=== PATIENT | female | born 1950 | race Caucasian/White ===

== ENCOUNTER 2017-07-18 16:47 | Emergency (ER) | payer MEDICARE, OTHER ==
--- NOTE | 2017-07-18 17:12 | PDOC ---
Rapid Medical Evaluation Time Seen by Provider: 07/18/17 17:02 Medical Evaluation: 07/18/17 17:03 I have performed a brief in-person evaluation of the patient. The patient presents with a chief complaint of : non productive coughing that causes discomfort in chest, and congestion. Denies fever or chills Pertinent physical exam findings. unlabored breathing clear lungs bilaterally I have ordered the following chest xray This patient will proceed to the ED for further evaluation.
[2017-07-18 17:13] VITALS: BP 141/63; PULSE 88; TEMP 98.6; BMI 21.2
--- NOTE | 2017-07-18 17:55 | PDOC ---
History of Present Illness - General Chief Complaint: Cold Symptoms Stated Complaint: COLD SYMPTOMS Time Seen by Provider: 07/18/17 17:02 - History of Present Illness Initial Comments: 66-year-old healthy active female presents for evaluation of cough 4 days. She denies fever chills or night sweats. No headache. She has taken nothing for her cough. 07/18/17 17:50 Past History - Past Medical History Allergies/Adverse Reactions: Allergies Allergy/AdvReac Type Severity Reaction Status Date / Time No Known Allergies Allergy Verified 07/18/17 17:06 Home Medications: Ambulatory Orders Azithromycin [Zithromax -] 250 mg PO UTDICT #6 tab 07/18/17 Guaifenesin [Robitussin] 5 ml PO HS #30 ml 07/18/17 COPD: No HTN: Yes Hypercholesterolemia: Yes Psychiatric Problems: Yes (depression) - Suicide/Smoking/Psychosocial Hx Smoking History: Never smoked Have you smoked in the past 12 months: No Information on smoking cessation initiated: No Hx Alcohol Use: No (socially) Drug/Substance Use Hx: No Substance Use Type: None Review of Systems - Review of Systems Comments:: GENERAL/CONSTITUTIONAL: No fever or chills. No weakness. No weight change. HEAD, EYES, EARS, NOSE AND THROAT: No change in vision. No ear pain or discharge. No sore throat. CARDIOVASCULAR: No chest pain or shortness of breath. RESPIRATORY: + cough, no wheezing, or hemoptysis. GASTROINTESTINAL: No nausea, vomiting, diarrhea or constipation. No rectal bleeding. GENITOURINARY: No dysuria, frequency, or change in urination. MUSCULOSKELETAL: No joint or muscle swelling or pain. No neck or back pain. SKIN AND BREASTS: No rash or easy bruising. NEUROLOGIC: No headache, vertigo, loss of consciousness, or loss of sensation. PSYCHIATRIC: No depression or anxiety. ENDOCRINE: No increased thirst. No abnormal weight change. HEMATOLOGIC/LYMPHATIC: No anemia, easy bleeding, or history of blood clots. ALLERGIC/IMMUNOLOGIC: No hives or skin allergy. No latex allergy. 07/18/17 17:51 *Physical Exam - Vital Signs Last Vital Signs Temp Pulse Resp BP Pulse Ox 98.6 F 88 20 141/63 99 07/18/17 17:07 07/18/17 17:07 07/18/17 17:07 07/18/17 17:07 07/18/17 17:07 - Physical Exam Comments: GENERAL: The patient is awake, alert, and fully oriented, in no acute distress. HEAD: Normal with no signs of trauma. EYES: Pupils equal, round and reactive to light, extraocular movements intact, sclera anicteric, conjunctiva clear. ENT: Ears normal, nares patent, oropharynx clear without exudates. Moist mucous membranes. NECK: Normal range of motion, supple without lymphadenopathy, JVD, or masses. LUNGS: Breath sounds equal, clear to auscultation bilaterally. No wheezes, and no crackles. HEART: Regular rate and rhythm, normal S1 and S2 without murmur, rub or gallop. ABDOMEN: Soft, nontender, normoactive bowel sounds. No guarding, no rebound. No masses. EXTREMITIES: Normal range of motion, no edema. No clubbing or cyanosis. No cords, erythema, or tenderness. NEUROLOGICAL: Cranial nerves II through XII grossly intact. Normal speech, normal gait. PSYCH: Normal mood, normal affect. SKIN: Warm, Dry, normal turgor, no rashes or lesions noted. 07/18/17 17:53 Medical Decision Making - Medical Decision Making Given the symptoms and her age I will treat her as a bronchitis. I'll have her follow-up with her by [facility] physician 07/18/17 17:54 *DC/Admit/Observation/Transfer Diagnosis at time of Disposition: Bronchitis - Discharge Dispostion Disposition: HOME Condition at time of disposition: Stable Decision to Admit order: No - Prescriptions Prescriptions: Azithromycin [Zithromax -] 250 mg PO UTDICT #6 tab Guaifenesin [Robitussin] 5 ml PO HS #30 ml - Referrals Referrals: Vaibhav Aguilar [Primary Care Provider] - - Patient Instructions Printed Discharge Instructions: DI for Acute Bronchitis Additional Instructions: I have given you a prescription for an antibiotic as well as cough syrup to help sleep at night. Follow-up with your primary care physician in one to 2 days. Return to the emergency room should her symptoms worsen or go unresolved prior to follow-up with her primary care doctor. - Post Discharge Activity
== END 2017-07-18 18:12 | disposition home or self-care (01) ==
LOC: JERFT 16:47 → JER 16:47 → JERFT 18:12
DX: J40 Bronchitis, not specified as acute or chronic (principal); I10 Essential (primary) hypertension; F32.9 Major depressive disorder, single episode, unspecified; E78.00 Pure hypercholesterolemia, unspecified
CPT/HCPCS: 99281-25

== ENCOUNTER 2017-07-30 14:42 | Observation (INO) | payer MEDICARE, OTHER ==
[2017-07-30 14:50] VITALS: BMI 20.9
--- NOTE | 2017-07-30 15:11 | PDOC ---
History of Present Illness - General Chief Complaint: Syncope/Near Syncope Stated Complaint: Syncope/Near Syncope Time Seen by Provider: 07/30/17 15:07 - History of Present Illness Initial Comments: 07/30/17 18:41 The patient is a 66 year old female with a history of HTN, HLD who presents for evaluation following a syncopal episode. She is accompanied by family who assist in providing the history. They note that the patient experienced a syncopal episode earlier today. She states that she was standing when she experienced a sensation of lightheadedness and syncopized. She was caught by one of her relatives and returned baseline immediately after the episode. No rhythmic movements, incontinence, or tongue biting were noted. The patient notes ongoing chest pain over the past two weeks which she attributes to a bronchitis. The patient otherwise denies fevers, chills, SOB, nausea, vomiting , abdominal pain, or changes with urination or bowel movements. Past History - Past Medical History Allergies/Adverse Reactions: Allergies Allergy/AdvReac Type Severity Reaction Status Date / Time No Known Allergies Allergy Verified 07/30/17 15:59 Home Medications: Ambulatory Orders Amlodipine Besylate [Norvasc -] 5 mg PO DAILY 07/30/17 Atorvastatin Calcium 20 mg PO DAILY 07/30/17 Bisoprolol Fumarate [Zebeta (Nf) -] 2.5 mg PO DAILY 07/30/17 Calcium Carbonate/Vitamin D3 [Calcium 500 + Vit D3 400 Tab] 1 each PO DAILY 01/06 Donepezil HCl [Aricept -] 5 mg PO AM 07/30/17 Guaifenesin [Robafen] 100 mg PO HS 07/30/17 Losartan/Hydrochlorothiazide [Losartan-Hctz 100-25 mg Tab] 1 each PO DAILY 07/30 Omeprazole/Sodium Bicarbonate [Omeppi 40 mg-1,100 mg Capsule] 1 each PO ASDIR Sertraline HCl [Zoloft -] 50 mg PO AM 07/30/17 COPD: No HTN: Yes Hypercholesterolemia: Yes Psychiatric Problems: Yes (depression) - Suicide/Smoking/Psychosocial Hx Smoking History: Never smoked Have you smoked in the past 12 months: No Information on smoking cessation initiated: No Hx Alcohol Use: No Drug/Substance Use Hx: No Substance Use Type: None Review of Systems - Review of Systems Comments:: 07/30/17 18:44 Constitutional: No fevers, chills, fatigue, malaise HEENT: No Rhinorrhea, nasal congestion, visual changes Cardiovascular: Syncope, Lightheadedness. Chest pain. No palpitations, Respiratory: No Cough, SOB, Hemoptysis, Gastrointestinal: No Abdominal pain, Nausea, Vomiting, Constipation, Diarrhea, Melena Genitourinary: No Dysuria, Frequency, Urgency, Hesitancy, Hematuria, Flank pain Musculoskeletal: No Myalgia, arthralgia Skin: No rashes, itching, bruising, pallor Neurologic: No Headache, Dizziness, Numbness, Weakness, or Tingling Psychiatric: No Hallucinations. No SI or HI *Physical Exam - Vital Signs Last Vital Signs Temp Pulse Resp BP Pulse Ox 98.6 F 61 20 102/63 100 07/30/17 14:47 07/30/17 14:47 07/30/17 14:47 07/30/17 14:47 07/30/17 14:47 - Physical Exam Comments: 07/30/17 18:44 General Appearance: Nourished. No Apparent Distress HEENT: EOMI, SHABNAM. No Pharyngeal Erythema, Tonsillar Exudate, Tonsillar Erythema Neck: No Cervical Lymphadenopathy Respiratory/Chest: Lungs Clear, Normal Breath Sounds. No Crackles, Rales, Rhonchi, Wheezing Cardiovascular: Regular Rhythm, Regular Rate. No Murmur, Gallops, Rubs Gastrointestinal/Abdominal: Normal Bowel Sounds, Soft. No Guarding, Rebound, Tenderness Musculoskeletal: No CVA Tenderness Extremity: Normal Capillary Refill Integumentary: Normal Color, Dry, Warm Neurologic: Fully Oriented, Alert, Normal Mood/Affect, Normal Response, ED Treatment Course - LABORATORY CBC & Chemistry Diagram: 07/30/17 15:15 07/30/17 15:15 Medical Decision Making - Medical Decision Making 07/30/17 18:45 The patient is a 66 year old female with a history of HTN, HLD who presents for evaluation following a syncopal episode. Differential includes but is not limited to: Arrhythmia, ACS, Dehydration, Vaso-vagal, Infectious, Metabolic derangement. Given the patient's history and physical exam, we will obtain a cbc, cmp, troponin, ekg, chest plain film to evaluate further for possible etiologies. We will continue to closely monitor and reassess while here in the ED. 07/30/17 18:46 CBC, cmp, troponin are unremarkable. There are concerning findings on the patient's ekg and a prior is unavailable. Given the patient's syncopal episode , we believe she requires admission for further work up at this time. We discussed the case with Dr. Bolivar with cardiology who has been made aware of the case and does not believe her syncope is related to her EKG findings. *DC/Admit/Observation/Transfer Diagnosis at time of Disposition: Syncope Qualifiers: Syncope type: unspecified Qualified Code(s): R55 - Syncope and collapse - Discharge Dispostion Condition at time of disposition: Stable Decision to Admit order: Yes - Referrals Referrals: Vaibhav Aguilar [Primary Care Provider] - - Patient Instructions - Post Discharge Activity
[2017-07-30 15:57] LABS: INR 1.01 (0.82-1.09); PROTHROMBIN TIME (PATIENT) 11.4 SEC (9.7-13.0)
[2017-07-30 16:00] LABS: ACTIVATED PTT 25.3 SECONDS (26.9-34.4)
[2017-07-30 16:09] LABS: BASO % 0.3 % (0-2.0); EOS % 0.6 % (0-4.5); HEMATOCRIT 38.3 % (32.4-45.2); HEMOGLOBIN 12.8 GM/dL (10.7-15.3); LYMPH % 17.7 % (8-40); MCH 30.3 pg (25.7-33.7); MCHC 33.3 g/dl (32.0-36.0); MEAN CELL VOLUME 90.9 fl (80-96); MEAN PLT VOLUME 10.9 fl (7.5-11.1); MONO % 5.4 % (3.8-10.2); PLATELET COUNT 301 K/MM3 (134-434); RBC 4.21 M/mm3 (3.60-5.2); RDW 14.5 % (11.6-15.6); WHITE BLOOD COUNT 10.7 K/mm3 (4.0-10.0)
[2017-07-30 16:18] LABS: ALBUMIN 3.5 g/dl (3.4-5.0); ANION GAP 5 (8-16); BLOOD UREA NITROGEN 19 mg/dL (7-18); CALCIUM 8.8 mg/dL (8.5-10.1); CHLORIDE 104 mmol/L (98-107); CO2 30 mmol/L (21-32); CREATININE 0.9 mg/dL (0.55-1.02); GLUCOSE,RANDOM 138 mg/dL (74-106); POTASSIUM 3.5 mmol/L (3.5-5.1); SGOT/AST 21 U/L (15-37); SODIUM 139 mmol/L (136-145)
--- NOTE | 2017-07-30 16:21 | EKG ---
Test Reason : Blood Pressure : / mmHG Vent. Rate : 058 BPM Atrial Rate : 058 BPM P-R Int : 178 ms QRS Dur : 088 ms QT Int : 490 ms P-R-T Axes : 061 030 174 degrees QTc Int : 481 ms SINUS BRADYCARDIA LEFT VENTRICULAR HYPERTROPHY WITH REPOLARIZATION ABNORMALITY ABNORMAL ECG NO PREVIOUS ECGS AVAILABLE Confirmed by ZACARIAS LEUNG MD ([id number]) on 07/30/2017 4:21:02 PM Referred By: Confirmed By:ZACARIAS LEUNG MD
[2017-07-30 16:30] LABS: URINE APPEARANCE CLEAR; URINE BILIRUBIN NEGATIVE (<2.0 mg/dL); URINE BLOOD NEGATIVE (NEGATIVE); URINE COLOR LTYELLOW; URINE GLUCOSE (UA) NEGATIVE (NEGATIVE); URINE KETONE NEGATIVE (NEGATIVE); URINE LEUK ESTERASE NEGATIVE (NEGATIVE); URINE NITRITE NEGATIVE (NEGATIVE); URINE PROTEIN NEGATIVE (NEGATIVE); URINE UROBILINOGEN NEGATIVE mg/dL (0.2-1.0)
[2017-07-30 16:57] LABS: ALK PHOS 78 U/L (45-117); BILIRUBIN,TOTAL 0.3 mg/dL (0.2-1.0); TOT PROT 7.9 g/dl (6.4-8.2)
--- NOTE | 2017-07-30 17:03 | PDOC ---
Attending Attestation - Resident Resident Name: Isacc Ordoñez - ED Attending Attestation I have performed the following: I have examined & evaluated the patient, The case was reviewed & discussed with the resident, I agree w/resident's findings & plan, Exceptions are as noted - HPI HPI: 07/30/17 17:30 The patient is a 66-year-old female, with a past medical history of HTN and hyperlipidemia, who presents to the ED s/p syncopal episode today. The patient was standing up and suddenly became lightheaded. The patient passed out but a family member caught her and lowered her to the ground. No head strike. She was down for approximately 1 minute. No urine or stool incontinece. No shaking movements. As per family member, the patient seemed confused after the incident for a minute or two. Patient had a similar episode 1 year ago. On exam, the patient is complaining of generalized global headache and lightheadedness. The patient recently visited the ED 1 week ago for chest pain and was diagnosed with bronchitis. The patient was prescribed a course of azithromycin and robitussin. The patient denies any fever, chills, nausea, vomiting, diarrhea, or abdominal pain. The patient denies any chest pain or shortness of breath. The patient denies any incontinence, focal weakness or numbness Allergies: TOMAS PCP: Dr. Aguilar - Physicial Exam PE: 07/30/17 17:30 GENERAL: Awake, alert, and fully oriented, in no acute distress HEAD: No signs of trauma EYES: PERRLA, EOMI, sclera anicteric, conjunctiva clear ENT: Auricles normal inspection, hearing grossly normal, nares patent, oropharynx clear without exudates. Moist mucosa NECK: Normal ROM, supple, no lymphadenopathy, JVD, or masses LUNGS: Breath sounds equal, clear to auscultation bilaterally. No wheezes, and no crackles HEART: Regular rate and rhythm, normal S1 and S2, no murmurs, rubs or gallops ABDOMEN: Soft, nontender, normoactive bowel sounds. No guarding, no rebound. No masses EXTREMITIES: Normal range of motion, no edema. No clubbing or cyanosis. No cords, erythema, or tenderness NEUROLOGICAL: Normal speech, cranial nerves intact, negative pronator drift, 5/ 5 strength in all 4 extremities, normal sensation to light touch in all 4 extremities, normal cerebellar exam, normal gait, normal reflexes and tone SKIN: Warm, Dry, normal turgor, no rashes or lesions noted. - Medical Decision Making 07/30/17 17:31 66-year-old female history of hypertension, hyperlipidemia presents emergency Department with a syncopal episode. Vitals are unremarkable. Exam is unremarkable. EKG is very concerning given patient has diffuse T-wave inversions and ST depressions as well as a [address] elevation in aVR. Patient has been asymptomatic while in the ER, denies chest pain. Patient notes that she is often told she has a very abnormal EKG but does not know why. She states she saw a epidemiology investigator more than one year ago at [facility]. She has never had a cardiac cath. Given syncope and abnormal EKG, Dr. Manzo has been consulted, awaiting a call back. We will admit the pt to tele for monitoring overnight. 07/30/17 18:[address] Malloy (cards), states that EKG is not concerning for ALEXIS w reciprocal depressions, more so strain pattern. He does not believe this is related to her syncopal episode. Pt to be admitted for tele monitoring. Heart Score/ECG Review #1 07/30/17 17:37 Twelve-lead EKG was performed and reviewed by me. Sinus bradycardia, rate 58. Normal axis. Diffuse ST depressions in leads I, II, avL, V2-V6 with TWI. Pt also has 1mm ALEXIS in avr.
[2017-07-30 17:12] LABS: SGPT/ALT 25 U/L (12-78)
--- NOTE | 2017-07-30 20:47 | HP ---
Admitting History and Physical - Primary Care Physician PCP: Demetrius Álvarez - Admission Chief Complaint: syncope History of Present Illness: 66 year old female with a history of HTN, HLD who presents for evaluation following a syncopal episode. She is accompanied by family who assist in providing the history. They note that the patient experienced a syncopal episode earlier today. She states that she was standing when she experienced a sensation of lightheadedness and syncopized. She was caught by one of her relatives and returned baseline immediately after the episode. - - Past Medical History Cardiovascular: Yes: HTN, Hyperlipdemia - Smoking History Smoking history: Never smoked Have you smoked in the past 12 months: No - Alcohol/Substance Use Hx Alcohol Use: No Home Medications - Allergies Allergies/Adverse Reactions: Allergies Allergy/AdvReac Type Severity Reaction Status Date / Time No Known Allergies Allergy Verified 07/30/17 15:59 - Home Medications Home Medications: Ambulatory Orders Amlodipine Besylate [Norvasc -] 5 mg PO DAILY 07/30/17 Atorvastatin Calcium 20 mg PO DAILY 07/30/17 Bisoprolol Fumarate [Zebeta (Nf) -] 2.5 mg PO DAILY 07/30/17 Calcium Carbonate/Vitamin D3 [Calcium 500 + Vit D3 400 Tab] 1 each PO DAILY 01/06 Donepezil HCl [Aricept -] 5 mg PO AM 07/30/17 Guaifenesin [Robafen] 100 mg PO HS 07/30/17 Losartan/Hydrochlorothiazide [Losartan-Hctz 100-25 mg Tab] 1 each PO DAILY 07/30 Omeprazole/Sodium Bicarbonate [Omeppi 40 mg-1,100 mg Capsule] 1 each PO ASDIR Sertraline HCl [Zoloft -] 50 mg PO AM 07/30/17 Physical Examination Vital Signs: Vital Signs Temperature 98.6 F 07/30/17 14:47 Pulse Rate 60 07/30/17 19:29 Respiratory Rate 17 07/30/17 19:29 Blood Pressure 124/68 07/30/17 19:29 O2 Sat by Pulse Oximetry (%) 98 07/30/17 19:29 Constitutional: Yes: No Distress HENT: Yes: Atraumatic Neck: Yes: Supple Cardiovascular: Yes: Regular Rate and Rhythm Respiratory: Yes: CTA Bilaterally Gastrointestinal: Yes: Normal Bowel Sounds Extremities: Yes: WNL Neurological: Yes: Alert, Oriented Labs: CBC, BMP 07/30/17 15:15 07/30/17 15:15 Problem List - Problems (1) Syncope Assessment/Plan: tele monitoring fu cardiac profile cardiology consult Code(s): R55 - SYNCOPE AND COLLAPSE Qualifiers: Syncope type: unspecified Qualified Code(s): R55 - Syncope and collapse Assessment/Plan Laboratory Tests 07/30/17 07/30/17 07/30/17 15:15 15:15 15:15 WBC 10.7 H RBC 4.21 Hgb 12.8 Hct 38.3 MCV 90.9 MCH 30.3 MCHC 33.3 RDW 14.5 Plt Count 301 MPV 10.9 Absolute Neuts (auto) 8.2 Neutrophils % 76.0 Lymphocytes % 17.7 Monocytes % 5.4 Eosinophils % 0.6 Basophils % 0.3 Nucleated RBC % 0 PT with INR 11.40 INR 1.01 PTT (Actin FS) 25.3 L Sodium 139 Potassium 3.5 Chloride 104 Carbon Dioxide 30 Anion Gap 5 L BUN 19 H Creatinine 0.9 Creat Clearance w eGFR > 60 Random Glucose 138 H Calcium 8.8 Magnesium 2.0 Total Bilirubin 0.3 AST 21 ALT 25 Alkaline Phosphatase 78 Troponin I < 0.02 Total Protein 7.9 Albumin 3.5 Urine Color Urine Appearance Urine pH Ur Specific [place] Urine Protein Urine Glucose (UA) Urine Ketones Urine Blood Urine Nitrite Urine Bilirubin Urine Urobilinogen Ur Leukocyte Esterase Blood Type Antibody Screen 07/30/17 07/30/17 15:15 16:15 WBC RBC Hgb Hct MCV MCH MCHC RDW Plt Count MPV Absolute Neuts (auto) Neutrophils % Lymphocytes % Monocytes % Eosinophils % Basophils % Nucleated RBC % PT with INR INR PTT (Actin FS) Sodium Potassium Chloride Carbon Dioxide Anion Gap BUN Creatinine Creat Clearance w eGFR Random Glucose Calcium Magnesium Total Bilirubin AST ALT Alkaline Phosphatase Troponin I Total Protein Albumin Urine Color Ltyellow Urine Appearance Clear Urine pH 7.0 Ur Specific [place] 1.011 Urine Protein Negative Urine Glucose (UA) Negative Urine Ketones Negative Urine Blood Negative Urine Nitrite Negative Urine Bilirubin Negative Urine Urobilinogen Negative Ur Leukocyte Esterase Negative Blood Type O POSITIVE Antibody Screen Negative Active Medications Generic Name Dose Route Start Last Admin Trade Name Freq PRN Reason Stop Dose Admin Amlodipine Besylate 5 mg 07/31/17 10:00 Norvasc - PO DAILY [facility] Atorvastatin Calcium 20 mg 07/31/17 10:00 Lipitor - PO DAILY [facility] Donepezil HCl 5 mg 07/31/17 07:00 Aricept - PO AM [facility] Non-Formulary Medication 2.5 mg 07/31/17 10:00 Bisoprolol Fumarate PO DAILY [facility] Non-Formulary Medication 1 each 07/31/17 10:00 Losartan/Hydrochlorothiazide [Losartan-Hctz 100-25 Mg Tab] PO DAILY [facility] Sertraline HCl 50 mg 07/31/17 07:00 Zoloft - PO AM [facility]
[2017-07-30] MEDS ORDERED: ATORVASTATIN CA 20 MG TABLET (FP) PO SCH (22:00)
[2017-07-31] MEDS ORDERED: SERTRALINE HCL 50 MG TABLET (FP) PO SCH (07:00)
[2017-07-31] MEDS ORDERED: DONEPEZIL HCL 5 MG TABLET (FP) PO SCH (07:00)
[2017-07-31 07:19] LABS: BASO % 0.5 % (0-2.0); HEMATOCRIT 37.8 % (32.4-45.2); HEMOGLOBIN 12.8 GM/dL (10.7-15.3); LYMPH % 36.6 % (8-40); MCH 30.7 pg (25.7-33.7); MCHC 33.8 g/dl (32.0-36.0); MEAN CELL VOLUME 90.9 fl (80-96); MEAN PLT VOLUME 10.6 fl (7.5-11.1); MONO % 5.5 % (3.8-10.2); NEUT % 56.4 % (42.8-82.8); PLATELET COUNT 264 K/MM3 (134-434); RBC 4.16 M/mm3 (3.60-5.2); RDW 14.5 % (11.6-15.6); WHITE BLOOD COUNT 8.2 K/mm3 (4.0-10.0)
[2017-07-31 07:50] LABS: CHLORIDE 104 mmol/L (98-107); POTASSIUM 3.6 mmol/L (3.5-5.1); SODIUM 142 mmol/L (136-145)
[2017-07-31 08:00] LABS: ALBUMIN 3.2 g/dl (3.4-5.0); ALK PHOS 71 U/L (45-117); ANION GAP 10 (8-16); BILIRUBIN,TOTAL 0.7 mg/dL (0.2-1.0); BLOOD UREA NITROGEN 20 mg/dL (7-18); CALCIUM 8.8 mg/dL (8.5-10.1); CO2 28 mmol/L (21-32); GLUCOSE,RANDOM 96 mg/dL (74-106); SGOT/AST 20 U/L (15-37); SGPT/ALT 22 U/L (12-78); TOT PROT 7.7 g/dl (6.4-8.2)
[2017-07-31] MEDS ORDERED: PATIENT'S OWN MEDICATION (NON-FORMULARY) (Losartan/Hydrochlorothiazide [Losartan-Hctz 100- PO SCH (10:00)
[2017-07-31] MEDS ORDERED: ATENOLOL 25 MG TABLET (FP) PO SCH (10:00)
[2017-07-31] MEDS ORDERED: LOSARTAN POTASSIUM 50 MG TABLET (FP) PO SCH (10:00)
[2017-07-31] MEDS ORDERED: LOSARTAN POTASSIUM 100 MG TABLET PO SCH (10:00)
[2017-07-31] MEDS ORDERED: HYDROCHLOROTHIAZIDE 25 MG TABLET (FP) PO SCH (10:00)
[2017-07-31] MEDS: amLODIPine BESYLATE 5 MG TABLET (FP) PO SCH ×2 (10:27→13:08)
--- NOTE | 2017-07-31 10:37 | PN ---
Progress Note (short form) - Note Progress Note: Chief Complaint: Events noted, notes reviewed, syncopal episode History of Present Illness: Seen and examined on telemetry. Full consult dictated - Current Medication List Current Medications: Current Medications Amlodipine Besylate (Norvasc -) 5 mg PO DAILY [facility] Last Admin: 07/31/17 10:27 Dose: Not Given Atenolol (Tenormin -) 25 mg PO DAILY [facility] Last Admin: 07/31/17 10:27 Dose: 25 mg Atorvastatin Calcium (Lipitor -) 20 mg PO HS [facility] Last Admin: 07/30/17 21:22 Dose: 20 mg Donepezil HCl (Aricept -) 5 mg PO AM [facility] Last Admin: 07/31/17 06:08 Dose: 5 mg Hydrochlorothiazide (Hctz -) 25 mg PO DAILY [facility] Last Admin: 07/31/17 10:27 Dose: Not Given Losartan Potassium (Cozaar -) 100 mg PO DAILY [facility] Last Admin: 07/31/17 10:26 Dose: 100 mg Sertraline HCl (Zoloft -) 50 mg PO AM [facility] Last Admin: 07/31/17 06:08 Dose: 50 mg Review of Systems: Cardiovascular: As noted above Respiratory: denies: Cough or Sputum Production Gastrointestinal: denies: Nausea, Vomiting, Diarrhea, Constipation or Abdominal Discomfort Musculoskeletal: No Symptoms Reported Endocrine: No Symptoms Reported - Objective Vital Signs: Last Vital Signs Temp Pulse Resp BP Pulse Ox 98.1 F 69 18 120/70 98 07/31/17 08:24 07/31/17 08:24 07/31/17 08:24 07/31/17 08:24 07/30/17 19:29 Intake & Output 07/28/17 07/29/17 07/30/17 07/31/17 23:59 23:59 23:59 23:59 Intake Total 10 Balance 10 Weight 104 lb Neck: Supple Negative JVD No Bruit Cardiovascular: S1 S2 regular rate and rhythm grade 1-2/6 ARTUR Respiratory: Clear Gastrointestinal: Soft Benign Normal Bowel Sounds Ext: No Edema Labs: CBC, BMP 07/31/17 06:00 07/31/17 06:00 Assessment/Plan 1. Syncopal episode clinical presentation is consistent with neuro-cardiogenic syncope, unclear vaso-depressor vs. cardio-inhibitory unlikely to be vaso-vagal 2. Abnormal EKG suggestive of CAD with no clinical angina pectoris 3. Probable diastolic LV dysfunction with class 0 NHYA classification LV failure 4. Hypertensive cardiovascular disease 5. Hypercholestrolemia 6. Organic brain syndrome 7. CKD PLAN: 1. Continue B-Blockers 2. Continue Cozaar 3. Continue Norvasc with caution pending completion of evaluation 4. Avoid diuretics pending completion of evaluation 5. ASA 6. Continue Lipitor 7. Echocardiography completed, results pending, if LV function is normal and no evidence of HOCM noted patient can be D/C home for additional outpatient testing including Tilt table testing and possible extended monitoring or possible ILR, advised to F/U in our office or with her PMD Piter Dueñas MD
--- NOTE | 2017-07-31 12:37 | CONS ---
REQUESTING PHYSICIAN: Demetrius Álvarez MD DATE OF CONSULTATION: 07/31/2017 CHIEF COMPLAINT: Syncopal episode, cardiovascular evaluation. HISTORY OF PRESENT ILLNESS: This is a 66-year-old female of descent, Swedish-speaking (interpretation was provided by a staff member), with known history of hypertensive cardiovascular disease, hypercholesterolemia, abnormal electrocardiogram, syncopal episodes, who denied any history of diabetes mellitus, who presented to [facility] with a syncopal episode, which was witnessed by a family member. Patient stated she had sudden onset of dizziness, lightheadedness, subsequent loss of consciousness was reported, but patient did not report any injuries since her fall was prevented by a family member. Patient has reported similar episodes in the past, and no clear pathology has been identified. Patient denied any associated nausea or vomiting. Patient denied any preceding or associated palpitations. Patient denies any chest discomfort. Patient denies any dyspnea, orthopnea, paroxysmal nocturnal dyspnea, or peripheral edema. Patient denies any fatigue or tiredness. Patient has been evaluated by her primary care provider and electrocardiogram was performed several years ago, which was reported to be abnormal. Additional cardiovascular evaluation was performed, the results of which are not available at the moment. PAST MEDICAL HISTORY: Hypertensive cardiovascular disease, hypercholesterolemia, syncope. PAST SURGICAL HISTORY: Exploratory laparotomy for management of colon perforation post colonoscopy, section. SOCIAL HISTORY: Nonsmoker. FAMILY HISTORY: No family history of premature coronary artery disease. ALLERGIES: None reported. MEDICATIONS: Medical therapy currently included Norvasc 5 mg once a day, Lipitor 20 mg once a day, bisoprolol 2.5 mg once a day, calcium supplement 1 tablet once a day, Aricept 5 mg once a day for questionable organic brain syndrome, Hyzaar 1 tablet once a day, omeprazole 1 capsule once a day for gastroesophageal reflux disease, Zoloft 50 mg once a day. REVIEW OF SYSTEMS: Head and neck: Denies headache, photophobia, blurring of vision. Respiratory: No cough or sputum production. Cardiovascular: As noted above. Gastrointestinal: Denies nausea, vomiting, diarrhea, abdominal discomfort. Genitourinary: No symptoms reported. Musculoskeletal: No symptoms reported. PHYSICAL EXAMINATION: Vital signs: Blood pressure is 120/70 mmHg, pulse rate is 69 beats per minute. Head and neck: Pupils equally reactive to light and accommodation. Extraocular muscles are intact. Anicteric sclerae. Negative JVD. No bruit appreciated. Chest: Clear to auscultation and percussion. Cardiovascular: S1, S2 regular. No murmurs appreciated. No clicks or gallops. Abdomen: Soft, benign. Normoactive bowel sounds. Extremities: Negative edema. Intact distal pulses. No calf tenderness. STUDIES: Electrocardiogram reveals sinus rhythm with increased voltage and diffuse ST-segment and T-wave abnormality. Chest x-ray report was noted. CBC revealed white cell count of 8.3, hemoglobin of 12.8, platelet count 264. Basic metabolic profile revealed sodium of 142, potassium 3.6, BUN 20, creatinine 1.0, estimated GFR of 55.3, glucose 96. ASSESSMENT: 1. Syncopal episode. Clinical presentation is consistent with neurocardiogenic syncope, unclear vasodepressor versus cardioinhibitory. Unlikely to be vasovagal. 2. Abnormal electrocardiogram suggestive of coronary artery disease with no clinical angina pectoris. 3. Probable diastolic left ventricular dysfunction with class 0 [place] Heart Association Classification left ventricular failure. 4. Hypertensive cardiovascular disease. 5. Hypercholesterolemia 6. Organic brain syndrome. 7. Chronic kidney disease. RECOMMENDATIONS: 1. Continuation of beta-bandar therapy. 2. Continuation of Cosopt therapy. 3. Continuation of Norvasc therapy with caution pending completion of evaluation. 4. Avoidance of diuretics pending completion of evaluation. 5. Addition of aspirin. 6. Continuation of Lipitor therapy. 7. Echocardiography study completed, results are pending. If left ventricular systolic function is normal with no evidence of hypertrophic obstructive cardiomyopathy, patient can be discharged home for additional outpatient evaluation including tilt-table testing and possible extended monitoring or implantation of an implantable loop recorder. Patient was advised to follow up in our office or with her primary care provider for further evaluation and management. Thank you for the kind referral. RUBI PETERSEN M.D. [id number]
[2017-07-31 13:07] VITALS: BP 130/66; PULSE 70; TEMP 98.5
--- NOTE | 2017-07-31 15:05 | DS ---
Physical Examination Vital Signs: Vital Signs Temperature 98.5 F 07/31/17 13:00 Pulse Rate 70 07/31/17 13:00 Respiratory Rate 18 07/31/17 13:00 Blood Pressure 130/66 07/31/17 13:00 O2 Sat by Pulse Oximetry (%) 100 07/31/17 12:00 Labs: CBC, BMP 07/31/17 06:00 07/31/17 06:00 Discharge Summary Reason For Visit: Syncope Current Active Problems Syncope (Acute) Condition: Stable - Instructions Diet, Activity, Other Instructions: see hypoid gear tester 1 week Referrals: Vaibhav Aguilar [Primary Care Provider] - - Home Medications Comprehensive Discharge Medication List: Ambulatory Orders Amlodipine Besylate [Norvasc -] 5 mg PO DAILY 07/30/17 Atorvastatin Calcium 20 mg PO DAILY 07/30/17 Bisoprolol Fumarate [Zebeta (Nf) -] 2.5 mg PO DAILY 07/30/17 Calcium Carbonate/Vitamin D3 [Calcium 500-Vit D3 400 Tablet] 1 each PO DAILY 01/06 Donepezil HCl [Aricept -] 5 mg PO AM 07/30/17 Guaifenesin [Robafen] 100 mg PO HS 07/30/17 Losartan/Hydrochlorothiazide [Losartan-Hctz 100-25 mg Tab] 1 each PO DAILY 07/30 Omeprazole/Sodium Bicarbonate [Omeppi 40 mg-1,100 mg Capsule] 1 each PO ASDIR Sertraline HCl [Zoloft -] 50 mg PO AM 07/30/17 tn home
== END 2017-07-31 15:13 | disposition home or self-care (01) ==
LOC: JER 14:42 → JERBED 18:58 → J4W 20:58
PROVIDERS: ADMIT Internal Medicine; ATTEND Internal Medicine
DX: R55 Syncope and collapse (principal); I13.10 Hypertensive heart and chronic kidney disease without heart failure, with stage 1 through stage 4 chronic kidney disease, or unspecified chronic kidney disease; N18.9 Chronic kidney disease, unspecified; E78.5 Hyperlipidemia, unspecified; R94.31 Abnormal electrocardiogram [ECG] [EKG]; F09 Unspecified mental disorder due to known physiological condition
CPT/HCPCS: 36415; 71045-TC-FY; 80053; 81003; 82550; 83735; 84484; 85025; 85610; 85730; 86850; 86900; 86901; 87086; 93005; 93010; 93306-TC; 99283-25; G0378

== ENCOUNTER 2017-12-10 16:25 | Emergency (ER) | payer MEDICARE, OTHER ==
--- NOTE | 2017-12-10 16:28 | PDOC ---
Rapid Medical Evaluation Time Seen by Provider: 12/10/17 16:26 Medical Evaluation: Allergies Allergy/AdvReac Type Severity Reaction Status Date / Time No Known Allergies Allergy Verified 07/30/17 15:59 12/10/17 16:27 I have performed a brief in-person evaluation of this patient. The patient presents with a chief complaint of:vague BLANCO that started while in [place] waiting for family member who is a patient. No dizziness, n/v, blurry vision of focal weakness. Denies CP or SOB. H/o HTN on meds Pertinent physical exam findings:BP 193/90 I have ordered the following:nothing The patient will proceed to the ED for further evaluation. Discharge Disposition - Diagnosis Headache Qualifiers: Headache type: unspecified Headache chronicity pattern: acute headache Intractability: not intractable Qualified Code(s): R51 - Headache - Referrals - Patient Instructions - Post Discharge Activity
[2017-12-10 16:30] VITALS: BMI 21.2
--- NOTE | 2017-12-10 19:03 | PDOC ---
History of Present Illness - General Chief Complaint: Blood Pressure Problem Stated Complaint: BLOOD PRESSURE CHECK Time Seen by Provider: 12/10/17 16:26 - History of Present Illness Initial Comments: 12/10/17 20:47 The patient is a 67 year old female with a history of HTN, HLD who presents for evaluation of high blood pressure. The patient is accompanied by family who assist in providing the history. They state that she was waiting in the ED waiting room for a family member and began having a mild headache and requested that her BP be checked. She was noted to have an elevated BP. They report that the patient has been going to different EDs to have her blood pressure checked, but has not regularly followed with her primary care provider or coder. She notes that the headache was gradual onset and otherwise denies fevers, chills, SOB, chest, pain, nausea, vomiting, abdominal pain, or changes with urination or bowel movements. Past History - Past Medical History Allergies/Adverse Reactions: Allergies Allergy/AdvReac Type Severity Reaction Status Date / Time No Known Allergies Allergy Verified 12/10/17 16:28 Home Medications: Ambulatory Orders Amlodipine Besylate [Norvasc -] 5 mg PO DAILY 07/30/17 Atorvastatin Calcium 20 mg PO DAILY 07/30/17 Donepezil HCl [Aricept -] 5 mg PO AM 07/30/17 Losartan/Hydrochlorothiazide [Losartan-Hctz 100-25 mg Tab] 1 each PO DAILY 07/30 Omeprazole/Sodium Bicarbonate [Omeppi 40 mg-1,100 mg Capsule] 1 each PO ASDIR Sertraline HCl [Zoloft -] 50 mg PO AM 07/30/17 Bisoprolol Fumarate [Zebeta (Nf) -] 5 mg PO DAILY #20 tablet 12/10/17 COPD: No HTN: Yes Hypercholesterolemia: Yes Psychiatric Problems: Yes (depression) - Suicide/Smoking/Psychosocial Hx Smoking History: Unknown if ever smoked Have you smoked in the past 12 months: No Information on smoking cessation initiated: No Hx Alcohol Use: No Drug/Substance Use Hx: No Substance Use Type: None Hx Substance Use Treatment: No Review of Systems - Review of Systems Comments:: 12/10/17 20:59 Constitutional: No fevers, chills, fatigue, malaise HEENT: No Rhinorrhea, nasal congestion, visual changes Cardiovascular: No chest pain, syncope, palpitations, lightheadedness Respiratory: No Cough, SOB, Hemoptysis, Gastrointestinal: No Abdominal pain, Nausea, Vomiting, Constipation, Diarrhea, Melena Genitourinary: No Dysuria, Frequency, Urgency, Hesitancy, Hematuria, Flank pain Musculoskeletal: No Myalgia, arthralgia Skin: No rashes, itching, bruising, pallor Neurologic: Headache. No Dizziness, Numbness, Weakness, or Tingling Psychiatric: No Hallucinations. No SI or HI *Physical Exam - Vital Signs Last Vital Signs Temp Pulse Resp BP Pulse Ox 97.8 F 82 14 184/95 H 99 12/10/17 16:28 12/10/17 17:50 12/10/17 17:50 12/10/17 17:50 12/10/17 17:50 - Physical Exam Comments: 12/10/17 20:59 General Appearance: Nourished. No Apparent Distress HEENT: EOMI, SHABNAM. No Pharyngeal Erythema, Tonsillar Exudate, Tonsillar Erythema Neck: No Cervical Lymphadenopathy Respiratory/Chest: Lungs Clear, Normal Breath Sounds. No Crackles, Rales, Rhonchi, Wheezing Cardiovascular: Regular Rhythm, Regular Rate. No Murmur, Gallops, Rubs Gastrointestinal/Abdominal: Normal Bowel Sounds, Soft. No Guarding, Rebound, Tenderness Musculoskeletal: No CVA Tenderness Extremity: Normal Capillary Refill Integumentary: Normal Color, Dry, Warm Neurologic: replenishment associate II-XII NML intact, Fully Oriented, Alert, Normal Mood/Affect, Normal Response, Heart Score/ECG Review #1 ECG reviewed & interpreted by me at: 21:00 General ECG Interpretation: Sinus Rhythm, Normal Rate, Normal Intervals, No acute ischemic changes Compared to previous ECG there are: No significant change (07/30/17) 12/10/17 21:00 Left Ventricular Hypertrophy ED Treatment Course - LABORATORY CBC & Chemistry Diagram: 12/10/17 20:16 12/10/17 20:16 Medical Decision Making - Medical Decision Making 12/10/17 21:00 The patient is a 67 year old female with a history of HTN, HLD who presents for evaluation of high blood pressure. The patient appears clinically well on exam. Given the patient's history and physical exam, we will obtain a cbc, cmp, troponin, ua, ekg to evaluate further. The patient notes that she is not taking her norvasc anymore due to a syncopal episode several months ago. We discussed the case with Dr. Manzo with cardiology who recommended doubling the patient's bisoprolol for management. We will continue to monitor and reassess while here in the ED. 12/10/17 21:34 CBC, cmp, ua, troponin are unremarkable. The patient appears clinically well on exam and is asymptomatic. We are comfortable discharging the patient home with primary care provider and cardiology follow up. We discussed the results, plan, and return precautions with the patient and her family who voiced understanding and is agreeable with the plan. *DC/Admit/Observation/Transfer Diagnosis at time of Disposition: Headache Qualifiers: Headache type: unspecified Headache chronicity pattern: acute headache Intractability: not intractable Qualified Code(s): R51 - Headache - Discharge Dispostion Disposition: HOME Condition at time of disposition: Stable Decision to Admit order: No - Prescriptions Prescriptions: Bisoprolol Fumarate [Zebeta (Nf) -] 5 mg PO DAILY #20 tablet - Referrals Referrals: Sy Manzo MD [Staff Physician] - - Patient Instructions Printed Discharge Instructions: DI for High Blood Pressure, How to Monitor Your Blood Pressure at Home Additional Instructions: Please return to the ER if you experience concerning or worsening symptoms including worsening difficulty breathing, weakness, or chest pain. Please take your bisoprolol at the new dosing that we discussed with you. Instead of taking 2.5mg, please take 5mg daily. We have sent a new prescription to your pharmacy as well. Your lab results were normal here in the ER. Please call to schedule a follow up appointment with Dr. Dueñas within 2-3 days to discuss your ER visit and further management of your symptoms. Please call your cardiologists office Dr. Manzo tomorrow morning to schedule a follow up appointment as well. Por favor, regrese a la dilip de emergencias si experimenta problemas o empeoramiento de los sntomas incluyendo empeoramiento de la dificultad respiratoria, debilidad o dolor en el pecho. Por favor tome [place] bisoprolol en la nueva dosificacin que discutimos con usted. En lugar de matt 2,5 mg, por favor tome 5mg diariamente. Maria De Jesus hemos enviado flaco nueva receta a angeles farmacia. Los resultados de tu laboratorio fueron normales aqu en URGENCIAs. Por favor llame para programar flaco naomi de seguimiento con angeles proveedor de cuidado primario dentro (Dr. Dueñas) de los 2-3 becerra para discutir angeles visita de URGENCIAs y la administracin de mayra sntomas. Por favor llame a angeles oficina de cardilogos maana por la maana para programar flaco naomi de seguimiento maria de jesus. Print Language: SAMOAN - Post Discharge Activity
[2017-12-10] MEDS ORDERED: LOSARTAN 50MG/HCTZ 12.5MG 1 TAB (FP) PO ONE (19:05)
[2017-12-10] MEDS ORDERED: ACETAMINOPHEN 325 MG TABLET (FP) PO ONE (19:08)
[2017-12-10] MEDS ORDERED: ACETAMINOPHEN 325 MG TABLET (FP) ONE (19:38)
[2017-12-10 19:50] VITALS: TEMP 97.7
--- NOTE | 2017-12-10 20:31 | PDOC ---
Attending Attestation - Resident Resident Name: Isacc Ordoñez - ED Attending Attestation I have performed the following: I have examined & evaluated the patient, The case was reviewed & discussed with the resident, I agree w/resident's findings & plan, Exceptions are as noted - HPI HPI: 12/10/17 20:21 The patient is a 67 year old female, with a significant past medical history of HTN and HLD, who presents to the emergency department with a headache and elevated blood pressure. As per patient, she was bringing a family member to the ER when she began to experience a mild global gradual onset headache. She requested that the triage staff check her blood pressure while in the waiting room and noted a systolic reading within the 190s, prompting her to check in. As per patients family, she has experienced similar symptoms in the past and her blood pressure typically is btwn 180s and 190s. Her family reports she bounces around to many doctors and thus has not been able to get her blood pressure under better control. On my evaluation, at this time pt denies headache and feels better. On review of EMR, pt was seen here in July for syncope and was advised to continue losartan/HCTZ and bisoprolol pills and stop amlodipine in case this contributed to the syncope. She denies recent fevers, chills, or dizziness. She denies recent nausea, vomit , diarrhea or constipation. She denies recent dysuria, frequency, urgency or hematuria. She denies recent chest pain or shortness of breath. Allergies: NKA Past surgical history: None reported. - Physicial Exam PE: 12/10/17 20:36 GENERAL: Awake, alert, and fully oriented, in no acute distress HEAD: No signs of trauma EYES: PERRLA, EOMI, sclera anicteric, conjunctiva clear ENT: Auricles normal inspection, hearing grossly normal, nares patent, oropharynx clear without exudates. Moist mucosa NECK: Normal ROM, supple, no lymphadenopathy, JVD, or masses LUNGS: Breath sounds equal, clear to auscultation bilaterally. No wheezes, and no crackles HEART: Regular rate and rhythm, normal S1 and S2, no murmurs, rubs or gallops ABDOMEN: Soft, nontender, normoactive bowel sounds. No guarding, no rebound. No masses EXTREMITIES: Normal range of motion, no edema. No clubbing or cyanosis. No cords, erythema, or tenderness NEUROLOGICAL: Normal speech, cranial nerves intact, negative pronator drift, 5/ 5 strength in all 4 extremities, normal sensation to light touch in all 4 extremities, normal cerebellar exam, normal gait, normal reflexes and tone SKIN: Warm, Dry, normal turgor, no rashes or lesions noted. - Medical Decision Making 12/10/17 20:36 67yo F hx HTN (previously on 4 antihypertensive medications, now on 3) presents to the ED with now resolved headache and elevated BP. BP here 180s/190s, which her family states is where her BP usually is. It's possible pt may need to be restarted on amlodipine. WIll check basic labs and discuss with Dr. Dueñas. 12/10/17 21:[address] Manzo who recommends doubling of the bisoprolol from 2.5mg to 5mg daily Plan discussed thoroughly with pt and her family Discussed f/u for BP recheck within 1-[address] Newman Pt asymptomatic throughout Requests DC home I discussed the physical exam findings, ancillary test results and final diagnoses with the patient. I answered all of the patient's questions. The patient was satisfied with the care received and felt comfortable with the discharge plan and treatment plan. The patient will call their primary care physician within 24 hours to arrange follow-up and will return to the Emergency Department with any new, persistent or worsening symptoms. Heart Score/ECG Review #1 12/10/17 21:32 Twelve-lead EKG was performed and reviewed by me. Normal sinus rhythm, rate 64. Normal axis. High voltages. Diffuse T-wave inversions and ST depressions in leads 1, 2, aVL, aVF, V2 to V6. When compared to EKG from 07/30/2017, no significant changes.
[2017-12-10 20:47] LABS: BASO % 0.5 % (0-2.0); EOS % 2.4 % (0-4.5); HEMATOCRIT 38.4 % (32.4-45.2); HEMOGLOBIN 12.5 GM/dL (10.7-15.3); MCH 29.1 pg (25.7-33.7); MCHC 32.5 g/dl (32.0-36.0); MEAN CELL VOLUME 89.6 fl (80-96); MEAN PLT VOLUME 11.3 fl (7.5-11.1); MONO % 8.7 % (3.8-10.2); NEUT % 53.4 % (42.8-82.8); PLATELET COUNT 232 K/MM3 (134-434); RBC 4.29 M/mm3 (3.60-5.2); RDW 14.4 % (11.6-15.6); WHITE BLOOD COUNT 6.9 K/mm3 (4.0-10.0)
[2017-12-10 20:54] LABS: URINE APPEARANCE CLEAR; URINE BILIRUBIN NEGATIVE (<2.0 mg/dL); URINE COLOR STRAW; URINE GLUCOSE (UA) NEGATIVE (NEGATIVE); URINE KETONE NEGATIVE (NEGATIVE); URINE LEUK ESTERASE NEGATIVE (NEGATIVE); URINE NITRITE NEGATIVE (NEGATIVE); URINE PROTEIN NEGATIVE (NEGATIVE); URINE UROBILINOGEN NEGATIVE mg/dL (0.2-1.0)
[2017-12-10 21:09] VITALS: BP 160/78; PULSE 70
[2017-12-10 21:21] LABS: ALBUMIN 3.8 g/dl (3.4-5.0); ALK PHOS 103 U/L (45-117); ANION GAP 9 MMOL/L (8-16); BILIRUBIN,TOTAL 0.6 mg/dL (0.2-1); BLOOD UREA NITROGEN 20 mg/dL (7-18); CALCIUM 8.9 mg/dL (8.5-10.1); CHLORIDE 106 mmol/L (98-107); CO2 29 mmol/L (21-32); CREATININE 0.8 mg/dL (0.55-1.3); GLUCOSE,RANDOM 101 mg/dL (74-106); POTASSIUM 4.2 mmol/L (3.5-5.1); SGOT/AST 34 U/L (15-37); SGPT/ALT 41 U/L (13-61); SODIUM 144 mmol/L (136-145); TOT PROT 8.2 g/dl (6.4-8.2)
--- NOTE | 2017-12-11 12:52 | EKG ---
Test Reason : Blood Pressure : / mmHG Vent. Rate : 064 BPM Atrial Rate : 064 BPM P-R Int : 186 ms QRS Dur : 082 ms QT Int : 468 ms P-R-T Axes : 062 034 182 degrees QTc Int : 482 ms NORMAL SINUS RHYTHM LEFT VENTRICULAR HYPERTROPHY WITH REPOLARIZATION ABNORMALITY ABNORMAL ECG Confirmed by MD LIBIA, LISSETTE ([id number]) on 12/11/2017 12:51:51 PM Referred By: Confirmed By:LISSETTE REZA MD
== END 2017-12-10 21:45 | disposition home or self-care (01) ==
LOC: JER 16:25
DX: R51 Headache (principal); I10 Essential (primary) hypertension; E78.00 Pure hypercholesterolemia, unspecified; F32.9 Major depressive disorder, single episode, unspecified
CPT/HCPCS: 36415; 80053; 81003; 82550; 82553; 84484; 85025; 93005; 93010; 99282-25